=== PATIENT | male | born 1990 | race Caucasian/White ===

== ENCOUNTER 2016-08-30 17:47 | Emergency (ER) | payer SELFPAY ==
[2016-08-30 18:05] VITALS: TEMP 98.8
[2016-08-30] MEDS ORDERED: KETOROLAC TROMETHAMINE INJ 30 MG/ML VIAL IM ONE (18:12)
[2016-08-30] MEDS ORDERED: IPRATROPIUM/ALBUTEROL 3 ML VIAL NEB ONE (18:13)
--- NOTE | 2016-08-30 18:43 | RAD ---
EXAM DESCRIPTION: Chest,2 Views CLINICAL HISTORY: 25 years Male left anterior chest pain with breathing and movement COMPARISON: April 02, 2013 FINDINGS: The cardiomediastinal silhouette appears unremarkable. No consolidating infiltrates or pleural effusions. No pneumothorax. Small amount of atelectasis in the lung bases. IMPRESSION: Stable appearance of the chest with the exception of small amount of basilar atelectasis. Electronically signed by: Glendy Denson 08/30/2016 6:43 PM CDT
[2016-08-30] MEDS ORDERED: levoFLOXacin 500 MG TAB PO ONE (18:45)
--- NOTE | 2016-08-30 18:48 | ED.PDOC ---
History of Present Illness - General Chief Complaint: Chest Pain/AK Stated Complaint: Chest discomfort Time Seen by Provider: 08/30/16 18:12 Source: patient Exam Limitations: no limitations - History of Present Illness Initial Comments: he patient is a 25-year-old male presenting to the emergency room secondary toacute onset left anteriorchest pain after bending over while at work. the pain as pinching and pulling and stabbing. It is worse with movement and taking a deep breath. The patient also reports that for the last week he has had a productive sputum. He has felt some malaise. He does smoke significantly. No nausea or vomiting. No shortness of breath. The patient additionally does have chest wall tenderness to palpation over the area of pain. No palpitations. Timing/Duration: 1-3 hours Severity: moderate Improving Factors: nothing Worsening Factors: movement Associated Symptoms: cough, malaise Allergies/Adverse Reactions: Allergies NO KNOWN ALLERGY Allergy (Verified 08/30/16 18:03) Home Medications: Ambulatory Orders levoFLOXacin [Levaquin] 500 mg PO DAILY #5 tab 08/30/16 Review of Systems - Review of Systems Constitutional: States: malaise EENTM: States: nose congestion Respiratory: States: cough Cardiology: States: chest pain Gastrointestinal/Abdominal: States: no symptoms reported Genitourinary: States: no symptoms reported Musculoskeletal: States: no symptoms reported Skin: States: no symptoms reported Neurological: States: anxiety Endocrine: States: no symptoms reported All other Systems: No Change from Baseline Past Medical History (General) - Patient Medical History Hx Stroke: No Hx Congestive Heart Failure: No Hx Diabetes: No Hx MRSA: No Surgical History: other - Vaccination History Hx Tetanus, Diphtheria Vaccination: No Hx Influenza Vaccination: Yes - 2016 Hx Pneumococcal Vaccination: No - Social History Hx Tobacco Use: Yes Hx Chewing Tobacco Use: No Hx Alcohol Use: No Hx Substance Use: No Hx Substance Use Treatment: No Hx Depression: No Hx Physical Abuse: No Hx Emotional Abuse: No Hx Suspected Abuse: No - Female History Patient : No Family Medical History - Family History Mother Family History: No Known Living Status: Still Living Physical Exam - Physical Exam General Appearance: Alert, Comfortable, No apparent distress Eye Exam: bilateral normal Ears, Nose, Throat: hearing grossly normal, normal pharynx, nasal congestion Neck: non-tender, full range of motion Respiratory: lungs clear - with the exception of mild railsover the lower left anterior chest, no respiratory distress, no accessory muscle use, other - the patient does have chest wall tenderness to palpation. Cardiovascular/Chest: normal peripheral pulses, regular rate, rhythm, no edema Peripheral Pulses: radial,right: 2+, radial,left: 2+, dorsalis pedis,right: 2+, dorsalis pedis,left: 2+, posterior tibialis,right: 2+, posterior tibialis,left: 2+ Gastrointestinal/Abdominal: non tender, soft Rectal Exam: deferred Back Exam: normal inspection, no CVA tenderness, no vertebral tenderness Extremity: normal range of motion, non-tender, normal inspection, no pedal edema , no calf tenderness, normal capillary refill Neurologic: alert, normal mood/affect, oriented x 3 Skin Exam: normal color Comments: Vital Signs - 24 hr 08/30/16 08/30/16 18:03 18:42 Temperature 98.8 F Pulse Rate 82 Pulse Rate [ 109 H Left Radial] Respiratory 20 20 Rate Blood Pressure 130/83 [Left Arm] O2 Sat by Pulse 93 L 93 L Oximetry Progress - Progress Progress: 08/30/16 18:49 the patient is a 25-year-old male presenting with what appears to be pleuritic type chest pain. He may have a small underlying lingular pneumonia based upon his history of a productive sputum and the fact that he smokes significantly. He does need to stop smoking for now. The patient be placed on Levaquin 500 milligrams daily for 5 days. Ibuprofen can be used for discomfort. He needs to make himself cough. He needs to twist and turn to help reduce the pleurisy. ER warnings were given for any worsening. He should follow-up with his primary care doctor towards the end of the week. - Results/Orders Results/Orders: he EKG shows mild sinus tachycardia. Possible early right bundle branch block. No acute ST segment changes worrisome for ischemia. Slow R-wave progression in anterior leads. These are consistent with previous EKG from 2013. chest x-ray shows no definitive lobar pneumonia. No congestive heart failure signs. No pneumothorax. Departure - Departure Clinical Impression: Pleurisy, Lingular pneumonia Disposition: Discharge to Home or Self Care Condition: Fair Departure Forms: ED Discharge - Pt. Copy, Patient Portal Self Enrollment Instructions: Positive Mental Health Changes Found After Smoking Cessation, DI for Atypical Pneumonia, DI for Pleurisy Diet: regular diet Activity: increase activity as tolerated - stop smoking Prescriptions: levoFLOXacin [Levaquin] 500 mg PO DAILY #5 tab Home Medications: Ambulatory Orders levoFLOXacin [Levaquin] 500 mg PO DAILY #5 tab 08/30/16 Additional Instructions: the patient is a 25-year-old male presenting with what appears to be pleuritic type chest pain. He may have a small underlying lingular pneumonia based upon his history of a productive sputum and the fact that he smokes significantly. He does need to stop smoking for now. The patient be placed on Levaquin 500 milligrams daily for 5 days. Ibuprofen can be used for discomfort. He needs to make himself cough. He needs to twist and turn to help reduce the pleurisy. ER warnings were given for any worsening. He should follow-up with his primary care doctor towards the end of the week.
[2016-08-30 19:34] VITALS: BP 134/78; O2SAT 95
== END 2016-08-30 19:34 | disposition home or self-care (01) ==
LOC: ER 17:47
DX: J18.9 Pneumonia, unspecified organism (principal); R09.1 Pleurisy; R94.31 Abnormal electrocardiogram [ECG] [EKG]; F17.200 Nicotine dependence, unspecified, uncomplicated
CPT/HCPCS: 71020; 94640; J1885; J7620

== ENCOUNTER 2016-12-07 22:35 | Emergency (ER) | payer SELFPAY ==
[2016-12-07 23:14] VITALS: BP 119/77; TEMP 98.5; O2SAT 96
[2016-12-07] MEDS ORDERED: predniSONE 20 MG TAB PO ONE (23:18)
--- NOTE | 2016-12-07 23:21 | ED.PDOC ---
History of Present Illness - General Chief Complaint: Lower Extremity Injury Stated Complaint: rt knee pain Time Seen by Provider: 12/07/16 22:37 Source: patient Exam Limitations: no limitations - History of Present Illness Initial Comments: the patient is a 46-year-old male presenting to the emergency room secondary to mild to moderate discomfort to the anterior part of his knee for the last 3 days. Pain has been intermittent and fairly sharp. No instability and no real recent injuries. Examination of the knee shows pain over the anserine bursa. There is no bruising. No knee instability. No prepatellar pain and no patellar tendonitis Timing/Duration: unsure Severity: moderate Improving Factors: nothing Worsening Factors: movement Associated Symptoms: denies symptoms Allergies/Adverse Reactions: Allergies NO KNOWN ALLERGY Allergy (Verified 08/30/16 18:03) Home Medications: Ambulatory Orders levoFLOXacin [Levaquin] 500 mg PO DAILY #5 tab 08/30/16 Review of Systems - Review of Systems Constitutional: States: no symptoms reported EENTM: States: no symptoms reported Respiratory: States: no symptoms reported Cardiology: States: no symptoms reported Gastrointestinal/Abdominal: States: no symptoms reported Genitourinary: States: no symptoms reported Musculoskeletal: States: see HPI Skin: States: no symptoms reported Neurological: States: no symptoms reported All other Systems: No Change from Baseline Past Medical History (General) - Patient Medical History Hx Stroke: No Hx Congestive Heart Failure: No Hx Diabetes: No Hx MRSA: No Surgical History: tonsillectomy, other - Vaccination History Hx Tetanus, Diphtheria Vaccination: Yes - 2016 Hx Influenza Vaccination: No Hx Pneumococcal Vaccination: No - Social History Hx Tobacco Use: Yes Hx Chewing Tobacco Use: No Hx Alcohol Use: Yes Hx Substance Use: No Hx Substance Use Treatment: No Hx Depression: No Hx Physical Abuse: No Hx Emotional Abuse: No Hx Suspected Abuse: No - Female History Patient : No Family Medical History - Family History Mother Family History: No Known Living Status: Still Living Physical Exam - Physical Exam General Appearance: Alert, Comfortable, No apparent distress Eye Exam: bilateral normal Ears, Nose, Throat: hearing grossly normal Neck: full range of motion Respiratory: no respiratory distress, no accessory muscle use Cardiovascular/Chest: normal peripheral pulses, no edema Peripheral Pulses: radial,right: 2+, radial,left: 2+, dorsalis pedis,right: 2+, dorsalis pedis,left: 2+ Rectal Exam: deferred Extremity: normal range of motion, no pedal edema, no calf tenderness, normal capillary refill, other - see history of present illness 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 The patient was given 1 dose of oral prednisone here today and he can take 2 Aleve twice daily for the next week. He should expect some discomfort for the next 2-3 weeks. Topical heat or topical [id number] anti-inflammatories may also prove beneficial. ER warnings were given. He should follow-up with his primary care doctor in 2 weeks. Departure - Departure Clinical Impression: Anserine bursitis Disposition: Discharge to Home or Self Care Condition: Good Departure Forms: ED Discharge - Pt. Copy, Patient Portal Self Enrollment Instructions: DI for Leg Pain Diet: regular diet Activity: increase activity as tolerated Home Medications: Ambulatory Orders levoFLOXacin [Levaquin] 500 mg PO DAILY #5 tab 08/30/16 Additional Instructions: the patient a 26-year-old male presenting with right knee anserine bursitis. The patient was given 1 dose of oral prednisone here today and he can take 2 Aleve twice daily for the next week. He should expect some discomfort for the next 2-3 weeks. Topical heat or topical [id number] anti-inflammatories may also prove beneficial. ER warnings were given. He should follow-up with his primary care doctor in 2 weeks.
== END 2016-12-07 23:32 | disposition home or self-care (01) ==
LOC: ER 22:35
DX: M71.561 Other bursitis, not elsewhere classified, right knee (principal); Z87.891 Personal history of nicotine dependence

== ENCOUNTER 2020-02-04 15:55 | Emergency (ER) | payer MEDICAID ==
--- NOTE | 2020-02-04 16:21 | ED.PDOC ---
History of Present Illness - General Chief Complaint: General Stated Complaint: SOB AND LOW O2 SAT Time Seen by Provider: 02/04/20 15:58 Source: patient, RN notes reviewed, Vital Signs reviewed Exam Limitations: no limitations - History of Present Illness Comments: 29 yo otherwise healthy male comes in from urgent care with cough, shortness of breath. was recently diagnosed with covid. Patient states he was tested Sunday and was negative. Per [facility] salutation was 90%, so sent here for further evaluation. Upon arrival patient saturating 100% on RA. denies recent travel, surgery or immobilization, no family hx of blood clots. Allergies/Adverse Reactions: Allergies NO KNOWN ALLERGY Allergy (Verified 02/04/20 16:18) Review of Systems - Review of Systems Constitutional: Denies: chills, fever, malaise EENTM: Denies: nose congestion, throat pain, mouth pain Respiratory: States: cough, short of breath, wheezing Cardiology: Denies: chest pain, palpitations, syncope Gastrointestinal/Abdominal: Denies: abdominal pain, nausea, vomiting Genitourinary: Denies: frequency, hematuria Musculoskeletal: Denies: joint pain, muscle pain Skin: Denies: rash Neurological: Denies: headache, numbness, paresthesia, tremors, weakness Endocrine: Denies: unexplained weight gain, unexplained weight loss Hematologic/Lymphatic: Denies: easy bleeding, easy bruising Past Medical History (General) - Patient Medical History Hx Seizures: No Hx Stroke: No Hx Dementia: No Hx Asthma: No Hx of COPD: No Hx Cardiac Disorders: No Hx Congestive Heart Failure: No Hx Pacemaker: No Hx Hypertension: No Hx Thyroid Disease: No Hx Diabetes: No Hx Gastroesophageal Reflux: No Hx Renal Disease: No Hx MRSA: No - Vaccination History Hx Tetanus, Diphtheria Vaccination: No Hx Influenza Vaccination: Yes Hx Pneumococcal Vaccination: No - Social History Hx Tobacco Use: Yes Hx Chewing Tobacco Use: No Hx Alcohol Use: Yes - OCC Hx Substance Use: No Hx Substance Use Treatment: No Hx Depression: No Hx Physical Abuse: No Hx Emotional Abuse: No Hx Suspected Abuse: No - Female History Patient : No Family Medical History - Family History Mother Family History: No Known Living Status: Still Living Physical Exam - Physical Exam General Appearance: Alert, Comfortable, No apparent distress, Well Developed, Well Groomed, Well Hydrated, Well Nourished Eye Exam: bilateral normal ENT Exam: normal ENT inspection, hearing grossly normal, TMs normal Neck: non-tender, full range of motion, supple, normal inspection, trachea midline Respiratory: chest non-tender, lungs clear, normal breath sounds, no respiratory distress, no accessory muscle use Cardiovascular/Chest: normal peripheral pulses, no edema, no gallop, no JVD, no murmur, tachycardia Gastrointestinal/Abdominal: normal bowel sounds, non tender, soft, no organomegaly, no pulsatile mass Extremity: normal range of motion, non-tender, normal inspection, no pedal edema, no calf tenderness, normal capillary refill 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 patient tachycardic, states he drinks root beer and occasional energy drink. denies palpations or chest pain. I recommend we check some blood work including a d-dimer as his covid is negative and part of the differential was PE. Patient refused labs. The data reviewed when caring for this patient included: nurse notes, prior records, etc. The history and assessments from nurses notes were reviewed and considered, and the patient's home medication list was also reviewed and considered. My assessment and the results of testing completed here in the ED were discussed with the patient. All questions were answered, and they express understanding of my assessment and the plan. They have been instructed to return if their symptoms worsen, and have been asked to follow up with their primary care physician to recheck today's presenting complaint. Strict return precautions given. Norma Horne DO #[id number] - EKG/XRAY/CT EKG: Sinus, Tachy, Unchanged from 08/2016 XRAY: chest - no acute cardiopulmonary process. Departure - Departure Clinical Impression: Cough Dyspnea Qualifiers: Dyspnea type: unspecified Qualified Code(s): R06.00 - Dyspnea, unspecified Time of Disposition: 17:07 Disposition: Discharge to Home or Self Care Condition: Fair Departure Forms: ED Discharge - Pt. Copy, Patient Portal Self Enrollment Instructions: Smoking: Not Just Harmful to Your Lungs and Heart, Shortness of Breath (Dyspnea) (DC), Cough, Adult (DC), Breathing Exercises Diet: resume usual diet Activity: increase activity as tolerated Referrals: Ronel,Sarah Jannie, [employer] [Primary Care Provider] - 1-2 Days
[2020-02-04 16:35] VITALS: TEMP 98.6
--- NOTE | 2020-02-04 16:52 | RAD ---
EXAM DESCRIPTION: Chest,1 View CLINICAL HISTORY: Cough COMPARISON: August 30, 2016 TECHNIQUE: One view radiograph of the chest FINDINGS: Cardiac silhouette shows normal heart size. Pulmonary vascularity is within normal limits. Lungs show no confluent infiltrates. No pleural effusion. No pneumothorax. No acute osseous abnormality. IMPRESSION: No acute cardiopulmonary process. Electronically signed by: Mateusz Pardo MD 02/04/2020 4:50 PM PUNCH PRESS OPERATOR
[2020-02-04] MEDS ORDERED: DEXAMETHASONE 4 MG TAB PO ONE (17:04)
[2020-02-04 17:13] VITALS: BP 135/89; O2SAT 99
== END 2020-02-04 17:13 | disposition home or self-care (01) ==
LOC: ER 15:55
DX: R05 Cough (principal); R06.02 Shortness of breath; R00.0 Tachycardia, unspecified; R06.2 Wheezing; Z20.828 Contact with and (suspected) exposure to other viral communicable diseases; Z87.891 Personal history of nicotine dependence
CPT/HCPCS: 71045; 87635; 93005; J8540

== ENCOUNTER 2020-04-23 19:02 | Emergency (ER) | payer MEDICAID ==
--- NOTE | 2020-04-23 19:45 | ED.PDOC ---
History of Present Illness - General Chief Complaint: Eye Problems Stated Complaint: Swollen eye Time Seen by Provider: 04/23/20 19:43 Additional Information: Prior history of cellulitis and abscess - History of Present Illness Initial Comments: Patient states that earlier todayHe developed swelling of the right upper eyelid. There has been no loss of vision. No fever or chills. Patient states that earlier there was a cyst on his forehead superior to the right eye which he popped. Timing/Duration: 24 hours Severity: moderate Improving Factors: nothing Associated Symptoms: denies symptoms Allergies/Adverse Reactions: Allergies NO KNOWN ALLERGY Allergy (Verified 02/04/20 16:18) Home Medications: Ambulatory Orders Sulfamethoxazole-Trimethoprim [Sulfamethoxazole/Trimetho 800-160 mg] 1 tab PO BID 7 Days #14 tab 04/23/20 Review of Systems - Review of Systems Constitutional: States: no symptoms reported EENTM: States: other - No runny nose sore throat or other upper respiratory symptoms. Eye symptoms as noted in HPI. Respiratory: States: cough - Chronic and mild following COVID-19 infection about 1 year ago. Cardiology: States: no symptoms reported Gastrointestinal/Abdominal: States: no symptoms reported Genitourinary: States: no symptoms reported Musculoskeletal: States: no symptoms reported Skin: States: other - Tender swollen red area of the forehead incised by the p atient at home Earlier today Neurological: States: no symptoms reported Endocrine: States: no symptoms reported Hematologic/Lymphatic: States: no symptoms reported Past Medical History (General) - Patient Medical History Hx Seizures: No Hx Stroke: No Hx Dementia: No Hx Asthma: No Hx of COPD: No Hx Cardiac Disorders: No Hx Congestive Heart Failure: No Hx Pacemaker: No Hx Hypertension: No Hx Thyroid Disease: No Hx Diabetes: No Hx Gastroesophageal Reflux: No Hx Renal Disease: No Hx MRSA: No - Vaccination History Hx Tetanus, Diphtheria Vaccination: No Hx Influenza Vaccination: Yes Hx Pneumococcal Vaccination: No - Social History Hx Tobacco Use: Yes Hx Chewing Tobacco Use: No Hx Alcohol Use: Yes - OCC Hx Substance Use: No Hx Substance Use Treatment: No Hx Depression: No Hx Physical Abuse: No Hx Emotional Abuse: No Hx Suspected Abuse: No - Female History Patient : No Family Medical History - Family History Mother Family History: No Known Living Status: Still Living Physical Exam - Physical Exam General Appearance: Alert, Comfortable Eye Exam: right other - Upper eyelid is swollen soft nontender and slightly erythematous. Visual acuities without correction 20/15 right and left. No pain or limitation of extraocular motions. 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 There is a small draining wound with serous fluid draining. The area is minimally tender and there is no palpable fluctuance. Lymphatic: no adenopathy Progress - Progress Progress: 04/23/20 21:52 Clindamycin 900 mg IV. Septra DS 2 tablets by mouth. 04/24/20 01:53 Medical decision makin-year-old male with history of Cellulitis and abscesses complaining of swelling of the left upper eyelid following self lancing of a swollen area of infection on his forehead. Patient does not have any loss of vision or loss of extraocular motion - Results/Orders Results/Orders: EXAM DESCRIPTION: Orbits w/wo Contrast 04/23/2020 9:19 PM MECHANICAL PIPING DESIGNER CLINICAL HISTORY: 29 years, Male, Infection COMPARISON: None. PROCEDURE: Multiple transaxial tomograms of the orbits were performed utilizing 2 mm slice thickness at 2 mm interval reconstruction before and after the administration of IV contrast. In addition 2-D multiplanar reconstructions in the coronal and sagittal plane were performed and reviewed. An individualized dose optimization technique, Automated Exposure Control, was utilized for the performed procedure. FINDINGS: There is mucosal thickening of the frontal sinus, ossifications/thickening ethmoid sinuses mucus retention cyst right maxillary sinus measuring 2.5 cm and anterior inferior left maxillary sinus measuring 1.6 cm with no evidence for significant remodeling. There is soft tissue thickening and minimal enhancement along the right frontal skin-deep subcutaneous tissue extending into the right frontal supraorbital area, best identified CT series #5 on image -. No definitive abscess formation and/or abnormal fluid collections identified. The orbits, globes, lacrimal glands, intra and extraconal elements demonstrate to be within normal limits. The bony structures demonstrate no evidence for fractures. IMPRESSION: SKIN THICKENING WITH DEEP SUBCUTANEOUS TISSUE THICKENING AND ENHANCEMENT ALONG THE RIGHT FRONTAL AREA EXTENDING INTO THE RIGHT SUPRAORBITAL AREA SUGGESTING CELLULITIS. NO EVIDENCE FOR ABSCESS FORMATION AND/OR SIGNIFICANT ABNORMALITIES. Electronically signed by: Mateusz Guzman MD 04/23/2020 9:27 PM MECHANICAL PIPING DESIGNER 04/23/20 20:11 WOUND CULTURE Stat 04/23/20 20:27 Hold Metformin x 48Hrs [id number] 04/23/20 21:39 Clindamycin Inj (Vial) [Cleocin Inj (Vial)] 900 mg Sodium Chloride 0.9% 50Ml [NS 50ml] 50 ml IVPB ONCE Laboratory Results - last 24 hr 04/23/20 04/23/20 20:03 20:03 WBC 17.0 H RBC 5.31 Hgb 15.3 Hct 45.4 MCV 85.6 MCH 28.9 MCHC 33.8 RDW 13.9 Plt Count 300 MPV 8.3 Absolute Neuts (auto) 11.70 H Absolute Lymphs (auto) 3.10 Absolute Monos (auto) 1.10 H Absolute Eos (auto) 1.00 H Absolute Basos (auto) 0.10 Neutrophils % 69.0 Lymphocytes % 18.1 L Monocytes % 6.3 Eosinophils % 5.8 H Basophils % 0.8 Sodium 136 Potassium 4.0 Chloride 98 L Carbon Dioxide 28 Anion Gap 14.0 BUN 12 Creatinine 0.85 BUN/Creatinine Ratio 14.1 Random Glucose 182 H Serum Osmolality 276.4 Calcium 9.3 Total Bilirubin 0.7 AST 20 ALT 37 Alkaline Phosphatase 58 Serum Total Protein 8.1 Albumin 4.3 Globulin 3.8 H Albumin/Globulin Ratio 1.1 Vital Signs - 24 hr 04/23/20 19:13 Temperature 99.9 F H Pulse Rate [ 121 H left] Respiratory 20 Rate Blood Pressure 139/92 [Left Arm] O2 Sat by Pulse 97 Oximetry Departure - Departure Clinical Impression: Cellulitis Of forehead, MRSA (methicillin resistant Staphylococcus aureus) Time of Disposition: 21:53 Disposition: Discharge to Home or Self Care Condition: Good Departure Forms: ED Discharge - Pt. Copy, Patient Portal Self Enrollment Instructions: DI for Eye Pain, Cellulitis (Skin Infection), Adult (DC) Diet: resume usual diet Referrals: Sarah Rodney NP [Primary Care Provider] - 1-2 Weeks Prescriptions: Sulfamethoxazole-Trimethoprim [Sulfamethoxazole/Trimetho 800-160 mg] 1 tab PO BID 7 Days #14 tab Home Medications: Ambulatory Orders Sulfamethoxazole-Trimethoprim [Sulfamethoxazole/Trimetho 800-160 mg] 1 tab PO BID 7 Days #14 tab 04/23/20 Comments: Apply warm soaks to the draining wound on your forehead several times a day to hasten resolution of the infection. Do not poke rub or otherwise disturb the swollen and infected area. If you develop increasing pain swelling redness of your right orbit then return to the emergency department.
[2020-04-23] MEDS ORDERED: SODIUM CHLORIDE 0.9% 500ML 500 ML ONE (20:06)
--- NOTE | 2020-04-23 21:29 | CT ---
EXAM DESCRIPTION: Orbits w/wo Contrast 04/23/2020 9:19 PM V[employer] SERVICES MANAGER CLINICAL HISTORY: 29 years, Male, Infection COMPARISON: None. PROCEDURE: Multiple transaxial tomograms of the orbits were performed utilizing 2 mm slice thickness at 2 mm interval reconstruction before and after the administration of IV contrast. In addition 2-D multiplanar reconstructions in the coronal and sagittal plane were performed and reviewed. An individualized dose optimization technique, Automated Exposure Control, was utilized for the performed procedure. FINDINGS: There is mucosal thickening of the frontal sinus, ossifications/thickening ethmoid sinuses mucus retention cyst right maxillary sinus measuring 2.5 cm and anterior inferior left maxillary sinus measuring 1.6 cm with no evidence for significant remodeling. There is soft tissue thickening and minimal enhancement along the right frontal skin-deep subcutaneous tissue extending into the right frontal supraorbital area, best identified CT series #5 on image -. No definitive abscess formation and/or abnormal fluid collections identified. The orbits, globes, lacrimal glands, intra and extraconal elements demonstrate to be within normal limits. The bony structures demonstrate no evidence for fractures. IMPRESSION: SKIN THICKENING WITH DEEP SUBCUTANEOUS TISSUE THICKENING AND ENHANCEMENT ALONG THE RIGHT FRONTAL AREA EXTENDING INTO THE RIGHT SUPRAORBITAL AREA SUGGESTING CELLULITIS. NO EVIDENCE FOR ABSCESS FORMATION AND/OR SIGNIFICANT ABNORMALITIES. Electronically signed by: Mateusz Guzman MD 04/23/2020 9:27 PM V[employer] SERVICES MANAGER
[2020-04-23] MEDS ORDERED: CLINDAMYCIN IVPB ONE (21:39)
[2020-04-23] MEDS ORDERED: SODIUM CHLORIDE 0.9% IVPB ONE (21:39)
[2020-04-23] MEDS ORDERED: SULFA/TRIMETH 800/160 (DS) TAB 1 EA TAB PO ONE (21:51)
[2020-04-23] MEDS ORDERED: CLINDAMYCIN PHOSPHATE 150 MG/ML VIAL ONE (22:10)
[2020-04-23 22:54] VITALS: O2SAT 97
[2020-04-23 22:55] VITALS: TEMP 97.8
[2020-04-23 22:56] VITALS: BP 118/82
== END 2020-04-23 22:56 | disposition home or self-care (01) ==
LOC: ER 19:02
DX: L03.211 Cellulitis of face (principal); B95.62 Methicillin resistant Staphylococcus aureus infection as the cause of diseases classified elsewhere; R05 Cough; Z86.16 Personal history of COVID-19
CPT/HCPCS: 36415; 70482; 80053; 85025; 87070; A4216; J3490; J7040